=== PATIENT | male | born 1985 | race Two or more races ===

== ENCOUNTER 2017-07-14 18:41 | Emergency (ER) | payer BC ==
[~2017-07-14] VITALS: Ht 167.6 cm; Wt 104.3 kg
[2017-07-14 18:42] VITALS: BP 152/83
[2017-07-14] MEDS ORDERED: IBUPROFEN 400 MG TABLET ONE (19:20)
[2017-07-14] MEDS ORDERED: TDAP [DIPH/PERTUSSIS/TET] 0.5 ML VIAL IM ONE ×2 (19:20→19:30)
[2017-07-14] MEDS ORDERED: AMOX/CLAVULANATE 875 MG TABLET ONE (19:20)
[2017-07-14] MEDS ORDERED: AMOX/CLAVULANATE 875 MG TABLET PO ONE (19:30)
[2017-07-14] MEDS ORDERED: IBUPROFEN 400 MG TABLET PO ONE (19:30)
== END 2017-07-14 19:31 | disposition home or self-care (01) ==
LOC: ER 18:50 → EDBD 18:50 → ER 19:31
DX: S00.87XA Other superficial bite of other part of head, initial encounter (principal); W54.0XXA Bitten by dog, initial encounter; Y93.89 Activity, other specified; Y92.89 Other specified places as the place of occurrence of the external cause; Y99.8 Other external cause status
CPT/HCPCS: 90715; A4606; A6402; Z7610